=== PATIENT | male | born 1935 | race Caucasian/White ===

== ENCOUNTER 2022-08-14 16:42 | Observation (INO) ==
[2022-08-14 18:02] LABS: Basophils % 0.1 % (0.0-0.8); Eosinophils # 0.1 10*3/uL (0.0-0.87); Eosinophils % 0.8 % (0.00-10.9); Hematocrit 32.7 VOL% (42.0-52.0); Hemoglobin 10.4 GM/DL (14.0-18.0); Immature Granulocytes % 0.3 %; Immature Granulocytes Absolute 0.03 #; Lymphocytes # 1.6 10*3/uL (1.4-4.0); Lymphocytes % 18.4 % (21.2-54.2); Mean Corpuscular HGB Conc 31.8 GM/DL (32-36); Mean Corpuscular Volume 95.3 FL (87-102); Monocytes # 0.8 10*3/uL (0.11-0.8); Monocytes % 9.3 % (1.7-12.7); Neutrophils % 71.1 % (38.7-73.9); Platelet Count 222 T/CUMM (130-400); Red Blood Count 3.43 MC/CUMM (3.8-5.5); Red Cell Distribution Width 13.9 % (9.3-17.3); White Blood Count 8.85 T/CUMM (4-12)
[2022-08-14 18:11] LABS: PT Patient Result 10.7 SECS (10.1-12.1); Partial Thromboplastin Time 25.2 SECS (23.7-32.9)
[2022-08-14 18:19] LABS: Albumin 3.7 G/DL (3.4-5.0); Bilirubin,Total 0.5 MG/DL (0.20-1.00); Calcium 8.9 MG/DL (8.5-10.1); Osmolality,Calculated 281.3 MOS/KG (273-304); Potassium 3.9 MMOL/L (3.5-5.1); Total Protein 7.5 G/DL (6.4-8.2)
[2022-08-14] MEDS ORDERED: DOCUSATE SODIUM 100 MG CAPSULE PO PRN (20:19)
[2022-08-14] MEDS: DEXTROSE 5% NACL 0.45% 1,000 ML IV SCH (22:25)
[2022-08-15 00:52] LABS: RBC,Urine 82432 /HPF (0-4)
[2022-08-15 00:55] LABS: Bilirubin,Urine Negative (Negative); Blood, Urine Large mg/dL (Negative); Glucose,Urine (UA) Negative (Negative); Ketones,Urine Negative (Negative); Nitrite,Urine Negative (Negative); Protein,Urine >=300 mg/dL (Negative); Urine Appearance CLOUDY (Clear); Urine Color Red (Yellow); Urine Urobilinogen 0.2 eU/dL (<2.0)
[2022-08-15] MEDS: ALBUTEROL/IPRATROPIUM 3 ML NEB RESP TX SCH ×4 (00:55→18:54)
[2022-08-15 04:53] LABS: Basophils % 0.1 % (0.0-0.8); Eosinophils # 0.1 10*3/uL (0.0-0.87); Eosinophils % 1.3 % (0.00-10.9); Hematocrit 27.5 VOL% (42.0-52.0); Hemoglobin 8.6 GM/DL (14.0-18.0); Immature Granulocytes % 0.4 %; Immature Granulocytes Absolute 0.03 #; Lymphocytes # 1.9 10*3/uL (1.4-4.0); Mean Corpuscular HGB Conc 31.3 GM/DL (32-36); Mean Corpuscular Volume 95.8 FL (87-102); Mean Platelet Volume 10.1 FL (9.6-12.0); Monocytes # 0.7 10*3/uL (0.11-0.8); Monocytes % 9.8 % (1.7-12.7); Neutrophils % 62.4 % (38.7-73.9); Platelet Count 185 T/CUMM (130-400); Red Blood Count 2.87 MC/CUMM (3.8-5.5); Red Cell Distribution Width 13.8 % (9.3-17.3); White Blood Count 7.47 T/CUMM (4-12)
[2022-08-15] MEDS: ACETAMINOPHEN 325 MG TABLET PO PRN (05:01)
[2022-08-15 05:08] LABS: Calcium 8.4 MG/DL (8.5-10.1); Osmolality,Calculated 279.4 MOS/KG (273-304); Potassium 3.8 MMOL/L (3.5-5.1)
[2022-08-15] MEDS: NICOTINE 21 MG/24 HR PATCH TRANSDERM SCH (09:45)
[2022-08-15] MEDS ORDERED: cefTRIAXone 1,000 MG in SODIUM CHLORIDE 0.9% 100 ML IV ONE (11:00)
[2022-08-15] MEDS ORDERED: LACTATED RINGERS 1,000 ML IV SCH (11:30)
[2022-08-15] MEDS ORDERED: LIDOCAINE 2% 5 ML VIAL ONE (11:33)
[2022-08-15] MEDS ORDERED: propofoL 200 MG/20 ML VIAL IV ONE (11:33)
[2022-08-15] MEDS ORDERED: fentaNYL 100 MCG/2 ML VIAL ONE (11:34)
[2022-08-15] MEDS ORDERED: PHENYLEPHRINE DRIP 20 MG/250 ML PREMIX IV ONE (12:04)
[2022-08-15] MEDS ORDERED: ONDANSETRON 4 MG/2 ML VIAL ONE (13:43)
[2022-08-15] MEDS ORDERED: MIDAZOLAM 2 MG/2 ML VIAL ONE (13:45)
[2022-08-15] MEDS ORDERED: SEVOFLURANE 1 UNIT/15 MINUTE INH ONE (14:13)
[2022-08-15] MEDS ORDERED: ALBUTEROL/IPRATROPIUM 3 ML NEB RESP TX ONE (14:35)
[2022-08-15] MEDS ORDERED: ONDANSETRON 4 MG/2 ML VIAL IV ONE (14:45)
[2022-08-15] MEDS ORDERED: MEPERIDINE 25 MG/1 ML VIAL IV PRN (16:25)
[2022-08-15] MEDS ORDERED: ONDANSETRON 4 MG/2 ML VIAL IV PRN (16:25)
[2022-08-15] MEDS: ONDANSETRON 4 MG/2 ML VIAL IV PRN (19:21)
[2022-08-15] MEDS: DEXTROSE 5% NACL 0.45% 1,000 ML IV SCH (21:54)
[2022-08-16] MEDS: ALBUTEROL/IPRATROPIUM 3 ML NEB RESP TX SCH ×3 (00:11→12:40)
[2022-08-16] MEDS: ONDANSETRON 4 MG/2 ML VIAL IV PRN (02:00)
[2022-08-16 06:01] LABS: Basophils % 0.1 % (0.0-0.8); Eosinophils % 0.1 % (0.00-10.9); Hematocrit 28.7 VOL% (42.0-52.0); Hemoglobin 9.1 GM/DL (14.0-18.0); Immature Granulocytes % 0.5 %; Immature Granulocytes Absolute 0.06 #; Lymphocytes # 1.3 10*3/uL (1.4-4.0); Lymphocytes % 10.8 % (21.2-54.2); Mean Corpuscular HGB Conc 31.7 GM/DL (32-36); Mean Platelet Volume 10.8 FL (9.6-12.0); Monocytes # 1.1 10*3/uL (0.11-0.8); Monocytes % 9.1 % (1.7-12.7); Neutrophils % 79.4 % (38.7-73.9); Platelet Count 185 T/CUMM (130-400); Red Blood Count 2.99 MC/CUMM (3.8-5.5); Red Cell Distribution Width 13.9 % (9.3-17.3)
[2022-08-16 07:53] LABS: Calcium 8.4 MG/DL (8.5-10.1); Osmolality,Calculated 281.3 MOS/KG (273-304); Potassium 4.5 MMOL/L (3.5-5.1)
[2022-08-16] MEDS: NICOTINE 21 MG/24 HR PATCH TRANSDERM SCH (08:23)
[2022-08-16] MEDS ORDERED: MAGNESIUM SULF RIDER 4 GM/100 ML PREMIX IV PRN (08:53)
[2022-08-16] MEDS ORDERED: MAGNESIUM SULF RIDER 2 GM/50 ML PREMIX IV PRN (08:53)
[2022-08-16] MEDS ORDERED: cefTRIAXone 1,000 MG in SODIUM CHLORIDE 0.9% 100 ML IV SCH (11:00)
[2022-08-16 11:55] VITALS: BP 135/62
[2022-08-16] MEDS: ACETAMINOPHEN 325 MG TABLET PO PRN (13:04)
[2022-08-16] MEDS: DEXTROSE 5% NACL 0.45% 1,000 ML IV SCH (14:07)
== END 2022-08-16 14:27 | disposition home health service (06) ==
LOC: N.ED 16:42 → N.EDINP 16:42 → SUATTDRO 20:15 → N.2E 23:22
PROVIDERS: ADMIT Internal Medicine; ATTEND Internal Medicine